=== PATIENT | female | born 1960 | race Two or more races ===

== ENCOUNTER → 2024-05-31 | Day surgery (SDC) | payer OTHER ==
[2024-05-23 11:51] VITALS: BP 112/75
[~2024-05-31] VITALS: Ht 152.4 cm; Wt 54.4 kg
[~2024-05-31] MED LIST: ADVIL200 M1 PO; PROVENTIL; SINGULAIR4 MG PO
== END | disposition home or self-care (01) ==
LOC: ADM 05-23 10:45 → CIR.AMB 05:30
PROVIDERS: ATTEND Surgery
DX: R15.9 Full incontinence of feces (principal); Z53.8 Procedure and treatment not carried out for other reasons

== ENCOUNTER 2024-07-26 05:30 | Day surgery (SDC) | payer OTHER ==
[2024-07-11 10:44] VITALS: BP 132/67
[2024-07-12 09:12] LABS: PH,URINE 6.5 (5.0-8.0); URINE APPEARANCE Clear; URINE BILIRRUBIN Negative (NEGATIVE); URINE BLOOD Small; URINE COLOR Yellow; URINE GLUCOSE Negative (NEGATIVE); URINE KETONE Negative (NEGATIVE); URINE LEUKOCYTE Small; URINE NITRATE Negative; URINE PROTEIN Negative (NEGATIVE); URINE UROBILINOGEN 0.2 E.U./dl
[2024-07-12 09:14] LABS: HEMATOCRIT 42.1 % (36.0-45.00); HEMOGLOBIN 13.5 g/dL (12.0-15.00); MEAN CELL VOLUME 88.4 fL (80.00-100.00); MEAN CORPUSCULAR HEMOGLOBIN 28.4 pg (27.00-32.0); MEAN CORPUSCULAR HGB CONC 32.1 g/dl (32.0-36.0); PLATELET COUNT 160 K/uL (150-450); RED BLOOD COUNT 4.77 M/uL (4.00-6.00); RED CELL DISTRIBUTION WIDTH 12.8 % (11.5-14.5)
[2024-07-12 09:16] LABS: URINE BACTERIA 58.7 uL (0.0-1933); URINE EPITHELIAL CELLS 20.3 uL (0.0-38.8); URINE RBC 45.6 uL (0.0-20.8); URINE WBC 26.8 uL (0.0-23.2)
[2024-07-12 09:20] LABS: URINE CAST 0.29 uL (0.0-1.40)
[2024-07-12 09:53] LABS: INR 1.01; PARTIAL THROMBOPLASTIN TIME 24.2 SECONDS (22.0-34.0)
[2024-07-12 10:17] LABS: ALBUMIN 3.9 gm/dL (3.4-5.0); BILIRUBIN TOTAL 0.63 mg/dL (0.3-1.2); CALCIUM 8.9 mg/dL (8.5-10.1); CREATININE SERUM 0.67 mg/dL (0.55-1.02); GFR 88.33; GLOBULINA 3.1 G/DL (2.4-3.5); POTASSIUM 4.19 mEq/L (3.5-5.1)
[~2024-07-26] VITALS: Ht 152.4 cm; Wt 55.3 kg
[~2024-07-26 05:30] MED LIST changes: +ADVIL100 M1 PO
[2024-07-26] MEDS ORDERED: BUPIVACAINE HCL 0.5% 50ML VIAL ONE (09:01)
[2024-07-26] MEDS ORDERED: LIDOCAINE HCL 1%/EPINEPHRINE 20ML VIAL IJ ONE (10:00)
[2024-07-26] MEDS ORDERED: POVIDONE-IODINE 118 ML BOTT TOP ONE (10:00)
[2024-07-26] MEDS ORDERED: CEFAZOLIN SODIUM 1,000 MG VIAL IV ONE (10:00)
[2024-07-26] MEDS ORDERED: NEURONTIN300 MG PO (10:41)
[2024-07-26] MEDS ORDERED: ACETAMINOPHEN 500 MG GEL..CAP PO ONE (11:45)
== END 2024-07-26 13:40 | disposition home or self-care (01) ==
LOC: CIR.AMB 05:30 → EDSTATUS 09:00 → CIR.AMB 09:00
PROVIDERS: ATTEND Surgery
DX: R15.9 Full incontinence of feces (principal); Z88.6 Allergy status to analgesic agent; Z88.5 Allergy status to narcotic agent; G43.909 Migraine, unspecified, not intractable, without status migrainosus; M19.90 Unspecified osteoarthritis, unspecified site; M79.7 Fibromyalgia; J45.909 Unspecified asthma, uncomplicated; M81.0 Age-related osteoporosis without current pathological fracture
CPT/HCPCS: 64581; C1778

== ENCOUNTER 2024-08-09 07:42 | Day surgery (SDC) | payer OTHER ==
[~2024-08-09 07:42] MED LIST changes: +NEURONTIN300 MG PO
[2024-08-09] MEDS ORDERED: TRAM1TAB98 PO (18:41)
[2024-08-09] MEDS ORDERED: CEFAZOLIN SODIUM 1,000 MG VIAL IV ONE (18:45)
[2024-08-09] MEDS ORDERED: LIDOCAINE HCL 1%/EPINEPHRINE 20ML VIAL IJ ONE (18:45)
[2024-08-09] MEDS ORDERED: BUPIVACAINE HCL/PF 0.25% 30ML VIAL InF ONE (18:45)
== END 2024-08-09 20:40 | disposition home or self-care (01) ==
LOC: CIR.AMB 07:42
PROVIDERS: ATTEND Surgery
DX: R15.9 Full incontinence of feces (principal); Z88.6 Allergy status to analgesic agent; J45.909 Unspecified asthma, uncomplicated; G43.909 Migraine, unspecified, not intractable, without status migrainosus; M19.90 Unspecified osteoarthritis, unspecified site; M81.0 Age-related osteoporosis without current pathological fracture
CPT/HCPCS: 64590; 95972; C1767